=== PATIENT | male | born 1985 | race Hispanic/Latino ===

== ENCOUNTER 2017-12-05 19:41 | Emergency (ER) | payer SELFPAY ==
[2017-12-05] MEDS ORDERED: HYDROcodone/Acetaminophen 10/325 mg Tablet ONE (19:57)
[2017-12-05] MEDS ORDERED: Ibuprofen 800 MG TAB ONE (19:57)
--- NOTE | 2017-12-05 20:15 | RAD ---
RIGHT SHOULDER: 12/05/17 Three views. HISTORY: Right shoulder injury. No evidence of fracture or dislocation. AC joint is normally aligned. IMPRESSION: No acute abnormality. POS: [facility]
== END 2017-12-05 20:38 | disposition home or self-care (01) ==
LOC: MADERS 19:41
DX: S40.011A Contusion of right shoulder, initial encounter (principal); J45.909 Unspecified asthma, uncomplicated; W17.89XA Other fall from one level to another, initial encounter